=== PATIENT | female | born 1960 | race Caucasian/White ===

== ENCOUNTER 2020-03-05 22:02 | Emergency (ER) | payer OTHER ==
[2020-03-05 22:15] VITALS: BP 127/87; PULSE 76
[2020-03-05] MEDS ORDERED: Lidocaine 1% 20 ML MDV INJECT ONE (22:48)
[2020-03-05] MEDS ORDERED: Bacitracin Oint 1 GM U/D Packet TOP ONE (22:49)
[2020-03-05] MEDS ORDERED: Diphtheria,Pertussis(Acell),Tetanus Vaccine 0.5 ML Syringe IM ONE (22:51)
--- NOTE | 2020-03-05 22:52 | EDM.PDOC ---
ED HPI GENERAL MEDICAL PROBLEM - General Chief Complaint: Laceration Stated Complaint: FELL AND HIT FACE/NOSE Time Seen by Provider: 03/05/20 22:49 Source of Information: Reports: Patient History Limitations: Reports: No Limitations - History of Present Illness INITIAL COMMENTS - FREE TEXT/NARRATIVE: PT FELL ON THE STEP AND SHE HIT HER NOSE . sHE HAD VERY PERSISTENT BLEEDING. Onset: Today, Sudden Duration: Hour(s): Location: Reports: Face Associated Symptoms: Reports: No Other Symptoms - Related Data Allergies Allergy/AdvReac Type Severity Reaction Status Date / Time No Known Allergies Allergy Verified 03/05/20 22:15 Home Meds: Home Meds Levothyroxine [Synthroid] 100 mcg PO QAM 11/27/15 [History] Lisinopril 5 mg PO QAM 11/27/15 [History] Anastrozole [Arimidex] 1 tab PO DAILY 03/05/20 [History] Fluticasone Propionate [Flovent] 1 tab PO DAILY 03/05/20 [History] Sertraline [Zoloft] 1 tab PO DAILY 03/05/20 [History] Past Medical History Cardiovascular History: Reports: Hypertension Musculoskeletal History: Reports: Other (See Below) Other Musculoskeletal History: knee pain Endocrine/Metabolic History: Reports: Hyperthyroidism Oncologic (Cancer) History: Reports: Breast - Past Surgical History HEENT Surgical History: Reports: Naso-Sinus Surgery GI Surgical History: Reports: Cholecystectomy, Colonoscopy Oncologic Surgical History: Reports: Biopsy of Breast, Lumpectomy Social & Family History - Tobacco Use Smoking Status *Q: Never Smoker ED ROS GENERAL - Review of Systems Review Of Systems: See Below Constitutional: Reports: No Symptoms HEENT: Reports: Nosebleed, Nose Pain, Other (BLEEDING FROM ALACERATION) Respiratory: Reports: No Symptoms Cardiovascular: Reports: No Symptoms Endocrine: Reports: No Symptoms GI/Abdominal: Reports: No Symptoms : Reports: No Symptoms Musculoskeletal: Reports: No Symptoms Skin: Reports: No Symptoms ED EXAM, SKIN/RASH Exam: See Below Text/Narrative:: pt arrived with a history of falling on the steps and hitting her nose. She had been drinking and missed a step. She has 2 laceration on her nose 1/8 inch and a 1 inch deep to the subq. She has swelling over the bridge of the nose. She had a xtray of the nose which showed a bilateral fracture of the nasal bone. Exam Limited By: No Limitations General Appearance: Alert, Anxious, Moderate Distress, Other ( the laceration continued to bleed. ) Ears: Normal TMs Nose: Other ( swelling looks straight. She did have the laceration as described above. ) Throat/Mouth: Normal Inspection Head: Other ( trauma as mentioned. ) Neck: Normal Inspection Respiratory/Chest: No Respiratory Distress Cardiovascular: Regular Rate, Rhythm GI/Abdominal: Soft, Non-Tender (Female) Exam: Deferred Rectal (Female) Exam: Deferred Back Exam: Normal Inspection Extremities: Normal Inspection Course - Vital Signs Last Recorded V/S: Last Vital Signs Temp 36.4 C 03/05/20 22:25 Pulse 76 03/05/20 22:25 Resp 16 03/05/20 22:25 BP 127/87 03/05/20 22:25 Pulse Ox 96 03/05/20 22:25 - Orders/Labs/Meds Labs: Laboratory Tests 03/05/20 03/05/20 Range/Units 23:35 23:35 WBC 7.7 (4.5-11.0) K/uL RBC 3.94 (3.30-5.50) M/uL Hgb 12.4 (12.0-15.0) g/dL Hct 38.8 (36.0-48.0) % MCV 99 H (80-98) fL MCH 32 H (27-31) pg MCHC 32 (32-36) % Plt Count 239 (150-400) K/uL Neut % (Auto) 80 H (36-66) % Lymph % (Auto) 14 L (24-44) % [place] % (Auto) 5 (2-6) % Eos % (Auto) 1 L (2-4) % Baso % (Auto) 0 (0-1) % Ethyl Alcohol 169 mg/dL Meds: Medications Discontinued Medications Generic Name Dose Route Start Last Admin Trade Name Freq PRN Reason Stop Dose Admin Bacitracin 1 dose 03/05/20 22:49 03/05/20 23:27 Bacitracin Oint 1 Gm TOP 03/05/20 22:50 1 dose ONETIME ONE Administration Ceftriaxone Sodium 1 gm 03/05/20 23:46 03/06/20 00:11 Rocephin IM 03/05/20 23:47 1 gm ONETIME ONE Administration Diphtheria/Tetanus/Acell Pertussis 0.5 ml 03/05/20 22:51 03/05/20 23:27 Boostrix IM 03/05/20 22:52 0.5 ml .ONCE ONE Administration Fluconazole 100 mg 03/06/20 00:34 03/06/20 00:54 Diflucan PO 03/06/20 00:35 100 mg ONETIME ONE Administration Lidocaine HCl 20 ml 03/05/20 22:48 03/05/20 23:28 Xylocaine 1% INJECT 03/05/20 22:49 20 ml ONETIME ONE Administration Lidocaine HCl 5 ml 03/06/20 00:05 03/06/20 00:11 Xylocaine-Mpf 1% INJECT 03/06/20 00:06 5 ml ONETIME ONE Administration - Re-Assessments/Exams Free Text/Narrative Re-Assessment/Exam: 03/05/20 23:38 PT HAD A XRAY OF HER NASAL BONE WHICH SHOWED A DEFINITE FRACTURE. sHE DID D EVELOP SUQ AIR IN THE LEFT EYE LID AREA. sHE WAS FOUND TO HAVE A LACERTION JUST ABOVE THE NASAL BONE FRACTURE. tHIS WAS 1/8 INCH IN LENGTH. sHE HAD A DEEP LACERATION ON THE LEFT SIDE OF HER NOSE. THIS WAS 1 INCH IN LENGTH. sHE HAD A CAT SCAN OF THE FACIAL BONES BECAUSE OF THE SUBQ AIR. sHE WAS SCRUBBED WELL AND INFILTRATED WITH LIDOCAINE. bOTH LACERATION WERE CLOSED. tHE SMALL LACERATION WOULD BE CONSIDERED A OPEN FRACTURE. tHE LArGER LACERATION WAS CLOSED IN A LAYERED MANNER WITH 5-0 CHROMIC AND 6-0 PROLENE. 03/05/20 23:42 PT HAD HER LAST TETANUS WAS 2011 SO SHE WAS GIVEN A TETANUS BOOSTER. 03/06/20 00:35 cat scan did not reveal a sinus fracture. 03/06/20 18:19 Departure - Departure Time of Disposition: 00:35 Disposition: Home, Self-Care 01 Condition: Fair Clinical Impression: Nasal fracture, Laceration - Discharge Information Instructions: Nasal Fracture, [id number] Referrals: PCP,None [Primary Care Provider] - Forms: ED Department Discharge Care Plan Goals: see Ent specialist in [place], cat scan and nasal films will be sent on disc. Suture removal in 6-7 days, keflex 500mg tid for 10 days. Motrin and tylenol for pain, may cool pack. Sepsis Event Note (ED) - Evaluation Sepsis Screening Result: No Definite Risk
[2020-03-05] MEDS ORDERED: cefTRIAXone 1 GM Vial IM ONE (23:46)
--- NOTE | 2020-03-05 23:57 | CRLCR ---
Indication: Fall, hit face Technique: Three views Comparison: None Findings: Mild soft tissue swelling with bilateral nasal bone fractures without significant displacement. Orbits unremarkable. No air-fluid levels within the maxillary sinuses. Dictated by Rudolph Fowler MD @ Mar 05 2020 11:52PM Signed by Dr. Rudolph Fowler @ Mar 05 2020 11:55PM
--- NOTE | 2020-03-06 00:32 | CRLCT ---
INDICATION: Fall, facial trauma. TECHNIQUE: CT maxillofacial without contrast. COMPARISON: None FINDINGS: Facial bones: Fracture of the nasal bone tip extending into the left nasal bone with 4 millimeters medial displacement of the left nasal bone. Fracture extends to the margin of the nasal septum. Small hematoma within the anterior aspect of the nasal septum. Right temporomandibular joint osteoarthritis. Orbits and globes: Prominent subcutaneous emphysema as well as a small amount of intraorbital emphysema at the level of the left orbit. No clear intraorbital hematoma or definite orbital fracture. Sinuses: Mild opacification right anterior ethmoidal air cells. Soft tissues: Perinasal hematoma within the subcutaneous tissues as well as subcutaneous air. IMPRESSION: 1. Fracture of the nasal tip extending into the left nasal bone with medial displacement of the left nasal bone 4 millimeters. 2. Prominent subcutaneous emphysema in the perinasal region extending to the periorbital tissues. Note is made of some intraorbital emphysema at the level of the left orbit. An occult orbital wall fracture is possible although no clear fracture or intraorbital hematoma is identified on this study. Please note that all CT scans at this facility use dose modulation, iterative reconstruction, and/or weight-based dosing when appropriate to reduce radiation dose to as low as reasonably achievable. Dictated by Rudolph Fowler MD @ Mar 06 2020 12:21AM Signed by Dr. Rudolph Fowler @ Mar 06 2020 12:32AM
[2020-03-06] MEDS ORDERED: Fluconazole 100 MG Tab PO ONE (00:34)
== END 2020-03-06 01:17 | disposition home or self-care (01) ==
LOC: JP.ED 22:02
DX: S02.2XXA Fracture of nasal bones, initial encounter for closed fracture (principal); S01.21XA Laceration without foreign body of nose, initial encounter; I10 Essential (primary) hypertension; Z23 Encounter for immunization; Z90.49 Acquired absence of other specified parts of digestive tract; Z79.899 Other long term (current) drug therapy; W01.10XA Fall on same level from slipping, tripping and stumbling with subsequent striking against unspecified object, initial encounter
CPT/HCPCS: 12013; 36415; 70160; 70486; 80307; 85025; 90471; 96372; 99283; 99284; A9270; J0696; J2001; 12052